=== PATIENT | male | born 1965 | race African-American/Black ===

== ENCOUNTER → 2019-11-14 | Outpatient (CLI) | payer OTHER ==
--- NOTE | 2019-11-14 09:28 | REP ---
Clinical: History of fixation with recent trauma. Technique: AP, lateral, bilateral oblique views of the left knee. Findings: Evidence for prior fixation with intramedullary rods through the visualized tibia. Degenerative changes to the knee are suggested without obvious acute fracture or dislocation. Lateral view suggests soft tissue swelling and possible effusion. Subtle injury to the patella cannot definitively be excluded and should be correlated clinically. Impression: Anterior swelling and possible small effusion. Degenerative changes are appreciated. No definite acute injury although subtle trauma to the patella cannot be excluded and requires physical correlation. Electronically Signed by Lavon England MD 11/14/2019 09:20 A
--- NOTE | 2019-11-14 09:30 | REP ---
Clinical: Prior fixation/trauma with acute injury and pain. Technique: AP and lateral views of the left tibia / fibula. Findings: Evidence of prior healed fractures involving the mid tibial and fibular shafts including two intramedullary fixation wires through the tibia. No obvious acute fracture or dislocation. Impression: Post traumatic and degenerative changes. No obvious acute fracture or dislocation appreciated. Electronically Signed by Lavon England MD 11/14/2019 09:22 A
== END ==
LOC: M RAD 08:37
PROVIDERS: ATTEND Surgery
DX: M79.605 Pain in left leg (principal)